=== PATIENT | male | born 1950 | race Caucasian/White ===

== ENCOUNTER → 2016-10-06 | Outpatient (CLI) | payer OTHER ==
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
--- NOTE | 2016-10-06 16:18 | MR ---
EXAMINATION TYPE: MR knee LT wo con DATE OF EXAM: 10/06/2016 COMPARISON: NONE HISTORY: Chaim knee pain TECHNIQUE: Multiplanar, multisequence imaging of the knee is performed without IV contrast. FINDINGS: MEDIAL MENISCUS: Anterior and posterior horns are intact without tear. LATERAL MENISCUS: Posterior horn has increased signal internally compatible some internal derangement or degenerative change. CRUCIATE LIGAMENTS: The anterior and posterior cruciate ligaments are intact and unremarkable. COLLATERAL LIGAMENTS: The medial collateral ligament and lateral collateral ligament complex are inta ct and unremarkable. EXTENSOR MECHANISM: Visualized quadriceps and patellar tendons are intact. EFFUSION: No significant suprapatellar joint effusion. Minimal joint fluid is present. POPLITEAL CYST: No popliteal/guerrero cyst. TRICOMPARTMENT SPACES: There is narrowing of the medial and lateral compartment joint spaces. There i s thinning of the articular cartilage. Findings are compatible with osteoarthritic degenerative levin e. Patellofemoral space appears preserved. BONE MARROW SIGNAL: Some minimal increased signals along the anterior medial aspect lateral tibial pl ateau. A small contusion may be present. OTHER: No additional significant abnormality is appreciated. IMPRESSION: 1. Internal derangement or degenerative change posterior horn lateral meniscus. 2. Osteoarthritic degenerative change
== END | disposition home or self-care (01) ==
LOC: RADMRIMAIN 12:37
PROVIDERS: ATTEND Nurse Practitioner
DX: S83.241A Other tear of medial meniscus, current injury, right knee, initial encounter (principal); M17.12 Unilateral primary osteoarthritis, left knee

== ENCOUNTER → 2017-11-18 | Outpatient (CLI) | payer MEDICARE ==
--- NOTE | 2017-11-19 00:55 | MR ---
EXAMINATION TYPE: MR tspine/lspine wo con DATE OF EXAM: 11/18/2017 COMPARISON: None HISTORY: 67-year-old male with thoracic and lumbar spine pain, lumbago. TECHNIQUE: Multiplanar, multisequence imaging of the thoracic and lumbar spine is performed without I V contrast. FINDINGS: Thoracic spine: Vertebral body heights are preserved. Small superior endplate Schmorl's nodes at T5, T6, and T7 level s. Alignment is maintained. Mild heterogeneity of marrow signal without suspicious bone marrow replacement. A few scattered fatty matrix hemangiomas are demonstrated. There is variable mild intervertebral disc desiccation. No large focal disc herniation or significant spinal canal stenosis. Normal course, caliber, and signal intensity of the thoracic spinal cord and normal conus medullaris. No significant neural foraminal stenosis on either side. Lumbar spine: Vertebral body heights are preserved and alignment is maintained. Variable mild intervertebral disc desiccation. There is moderate disc space narrowing at L3-L4 with a ssociated Modic type II fatty endplate change and bulging disc with small left paracentral annular fi ssure. Conus medullaris is normal. Mild heterogeneity of marrow signal without suspicious bone marrow replacement. Facet arthropathy lower lumbar spine. From T12 through L3 levels, no significant spinal canal or foraminal stenosis. At L3-L4, diffuse disc bulge with left paracentral annular fissure and facet arthropathy. Changes res ult in minimal inferior left and mild right neural foraminal stenosis. No spinal canal stenosis. At L4-L5, there is facet degenerative change without significant canal or foraminal stenosis. At L5-S1, there is facet degenerative change without canal or foraminal stenosis. Suggestion of mild circumferential bladder wall thickening and prominent urinary bladder distention. No prevertebral or paravertebral soft tissue abnormality seen. IMPRESSION: THORACIC SPINE: 1. Mild degenerative disc disease without focal disc herniation or significant spinal canal or neurof oraminal stenosis. LUMBAR SPINE: 1. Mild multilevel degenerative disc disease, more moderate at L3-L4 with associated Modic type II en dplate change and a small left paracentral annular fissure. 2. Changes minimally narrow the left L3-L4 neuroforamen and mildly narrow the right. 3. No large focal disc herniation or significant canal stenosis. 4. Prominent urinary bladder distention with mild circumferential bladder wall thickening. Possible c hronic bladder wall hypertrophy such as from BPH/bladder outlet obstruction. Clinically correlate.
== END | disposition home or self-care (01) ==
LOC: RADMRIMAIN 12:01
PROVIDERS: ATTEND Nurse Practitioner
DX: M51.34 Other intervertebral disc degeneration, thoracic region (principal); M51.36 Other intervertebral disc degeneration, lumbar region; M99.73 Connective tissue and disc stenosis of intervertebral foramina of lumbar region
CPT/HCPCS: 72146; 72148

== ENCOUNTER 2018-04-21 10:33 | Day surgery (SDC) | payer MEDICARE ==
[2018-04-19 14:26] VITALS: BMI 31.3
[~2018-04-21 10:33] MED LIST: LACTATED RINGERS 1,000 ML IV SCH; LIDOCAINE 1% 20 ML VIAL (10MG/ML) FOR IV START INTRADERMA PRN; MIDAZOLAM (PF) 2 MG/2 ML VIAL IV PRN
[2018-04-21 11:02] VITALS: TEMP 97.3
[2018-04-21] MEDS ORDERED: LIDOCAINE 1% INJ 10MG/ML (20 ML MDV) ONE (11:57)
[2018-04-21] MEDS ORDERED: PROPOFOL 10 MG/ML 20 ML VIAL IV ONE (11:57)
--- NOTE | 2018-04-21 12:30 | P.PCN ---
Date of Procedure: 04/21/18 Procedure(s) Performed: Procedure: Esophagogastroduodenoscopy and biopsy. Preoperative diagnosis: Chronic reflux requiring medical therapy. Postoperative diagnosis: 1. Hiatal hernia with no obvious esophagitis or complicated reflux disease. 2. Multiple biopsies obtained from the duodenum, antrum and esophagus. Preparation sedation: Was provided by anesthesia. Brief clinical history: The patient is 67-year-old male with history of chronic reflux, was evaluated in our office earlier this month because of daily heartburn and acid regurgitation and intermittent nausea despite taking Zantac 300 twice a day. He has taken omeprazole and Nexium without help in the past. His last EGD may have been around 2013. This evaluation is to assess for esophagitis, complicated reflux disease or other pathology. Procedure: With the patient on his left lateral decubitus position and after informed consent and adequate sedation, I passed the Olympus-GIF H190 video upper endoscope through the cricopharyngeus down the esophagus. GE junction was around 36 cm from the incisors and there was a sliding hiatal hernia 2 or 3 cm in size. The esophagus did not show any obvious esophagitis or complicated reflux disease. The endoscope was then passed into the stomach which was insufflated with air and inspected in detail including the retroflex view in the cardia. There was minimal mottling and erythema in the antrum but no ulcers or erosions. Pyloric channel, duodenal bulb, post bulbar area and descending duodenum appeared within normal limits. Because of his symptoms, I obtained biopsies from the duodenum, antrum and esophagus then the endoscope was withdrawn. The patient tolerated the procedure well. Plan: The patient was reassured. Will await biopsy results and make further plans based on his course and biopsy results. We will keep you updated on his progress.
[2018-04-21 12:39] VITALS: BP 106/66; PULSE 66; RESP 16
== END 2018-04-21 13:00 | disposition home or self-care (01) ==
LOC: ORWHC2ENDO 10:33
DX: K29.50 Unspecified chronic gastritis without bleeding (principal); K21.9 Gastro-esophageal reflux disease without esophagitis; K44.9 Diaphragmatic hernia without obstruction or gangrene; I10 Essential (primary) hypertension; Z87.891 Personal history of nicotine dependence; Z79.899 Other long term (current) drug therapy; Z98.890 Other specified postprocedural states
CPT/HCPCS: 88305; 43239; J2001; J2704

== ENCOUNTER → 2018-05-05 | Outpatient (CLI) | payer MEDICARE ==
[2018-05-05 12:38] LABS: Basophils # (A) 0.1 k/uL (0-0.2); Basophils % (A) 1 %; Eosinophils # (A) 0.5 k/uL (0-0.7); Eosinophils % (A) 9 %; HCT 46.6 % (39.0-53.0); HGB 15.4 gm/dL (13.0-17.5); Lymphocytes # (A) 1.7 k/uL (1.0-4.8); Lymphocytes % (A) 29 %; MCH 30.3 pg (25.0-35.0); MCHC 33.2 g/dL (31.0-37.0); MCV 91.3 fL (80.0-100.0); Mean Platelet Volume 7.6; Monocytes # (A) 0.4 k/uL (0-1.0); Monocytes % (A) 6 %; Neutrophils % (A) 52 %; Platelet Count 254 k/uL (150-450); RDW 12.9 % (11.5-15.5); WBC 5.9 k/uL (3.8-10.6)
== END ==
LOC: LABPAT 11:39
PROVIDERS: ATTEND Surgery
DX: Z01.818 Encounter for other preprocedural examination (principal); Z01.812 Encounter for preprocedural laboratory examination; K21.9 Gastro-esophageal reflux disease without esophagitis
CPT/HCPCS: 85025

== ENCOUNTER 2018-05-12 07:31 | Day surgery (SDC) | payer MEDICARE ==
[~2018-05-12 07:31] MED LIST changes: +DEXAMETHASONE SOD PHOSPHATE 10 MG/ML 1 ML VIAL IV ONE; +HEPARIN SODIUM,PORCINE 5,000 UNIT/ML 1 ML VIAL SQ ONE; -LACTATED RINGERS 1,000 ML IV SCH; +ceFAZolin IN SWFI 2 GM/20 ML SYRINGE IVP ONE
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
[2018-05-12] MEDS: LACTATED RINGERS 1,000 ML IV SCH (08:46)
[2018-05-12] MEDS ORDERED: ONDANSETRON 4 MG/2 ML VIAL IVP ONE (08:50)
[2018-05-12] MEDS ORDERED: ePHEDrine SULFATE/0.9% NACL/PF 50 MG/5 ML SYRINGE IV ONE (09:07)
[2018-05-12] MEDS ORDERED: NEOSTIGMINE 1 MG/ML 10 ML VIAL ONE (09:07)
[2018-05-12] MEDS ORDERED: GLYCOPYRROLATE 0.2 MG/ML 2 ML VIAL ONE (09:07)
[2018-05-12] MEDS ORDERED: fentaNYL (PF) 50 MCG/ML 2 ML AMP ONE (09:07)
[2018-05-12] MEDS ORDERED: LIDOCAINE 1% INJ 10MG/ML (20 ML MDV) ONE (09:07)
[2018-05-12] MEDS ORDERED: SUCCINYLCHOLINE CHLORIDE 100 MG/5 ML SYR IV ONE (09:07)
[2018-05-12] MEDS ORDERED: HYDROmorphone (PF) 1 MG/ML ONE (09:07)
[2018-05-12] MEDS ORDERED: ROCURONIUM BROMIDE 10 MG/ML 10 ML VIAL IV ONE (09:07)
[2018-05-12] MEDS ORDERED: KETOROLAC 30 MG/ML 1 ML VIAL ONE (09:07)
[2018-05-12] MEDS ORDERED: PROPOFOL 10 MG/ML 20 ML VIAL IV ONE (09:07)
[2018-05-12] MEDS ORDERED: MIDAZOLAM 2 MG/2 ML VIAL ONE (09:07)
[2018-05-12] MEDS ORDERED: BUPIVACAIN-EPI 0.25%-1:200,000 30 ML VIAL SQ ONE (09:31)
[2018-05-12] MEDS ORDERED: LACTATED RINGERS 1,000 ML IV ONE (09:45)
[2018-05-12] MEDS ORDERED: ONDANSETRON 4 MG/2 ML VIAL IVP PRN (10:28)
--- NOTE | 2018-05-12 10:28 | P.OP ---
Date of Procedure: 05/12/18 Preoperative Diagnosis: GERD Postoperative Diagnosis: GERD Procedure(s) Performed: Laparoscopic Miracle fundoplication Anesthesia: RUDOLPH Surgeon: Cal Rowan Estimated Blood Loss (ml): 30 Pathology: none sent Condition: stable Disposition: PACU Description of Procedure: HThe patient was placed on the operating table in the supine position. The patient received general anesthesia. And was placed in dorsal lithotomy position. The patient was prepped and draped in the usual sterile fashion. The skin incision sites were anesthetized with 1% local Xylocaine. The skin was incised in the left periumbilical area and then using a blade less 5 mm trocar under direct visualization panel cavity was entered. After adequate insufflation the laparoscope was then placed into the peritoneal cavity. Next a 5 mm trochars placed in the right epigastric position. Another 5 millimeter trocar the right lateral position. Another 5 millimeter trocar in the left lateral position a 5 mm trocar is placed in the left epigastric position. And then the initial 5 mm trocar was exchanged for a 10 mm trocar. The left lateral lobe liver was retracted. The hernia was seen. The crural defect was then dissected using the Harmonic scissors device. A 360 crural dissection was performed the esophagus stomach was reduced back into the peritoneal Cavity. The crural defect was then closed using 2-0 Ethibond suture. Next the fundus of the stomach was mobilized using the [place] scissors device. and then a 58- [place] bougie dilator was placed oropharynx passed into the esophagus and stomach the fundal plication wrap was then performed by grasping the fundus posteriorly and bringing it around the esophagus and stomach fundoplication was then performed using 2-0 Ethibond suture. A 180 fundal plication was performed. Care was taken that the fundal location rested over top of the intra-abdominal esophagus. There was no injury seen to the stomach or esophagus. The dilator was then withdrawn. The abdomen was irrigated there is no bleeding seen. The trochars were then withdrawn and then skin incision sites were closed using 3-0 Monocryl suture Steri-Strips are applied. Patient thought procedure well and sent to recovery room in stable condition.
[2018-05-12] MEDS: fentaNYL (PF) 50 MCG/ML 2 ML AMP IV PRN ×2 (11:07→11:14)
[2018-05-12] MEDS: METOCLOPRAMIDE 5 MG/ML 2 ML VIAL IVP SCH ×3 (12:44→23:39)
[2018-05-12] MEDS: HYDROmorphone 1 MG/ML 1 ML SYRINGE IVP PRN ×2 (12:45→20:19)
[2018-05-12 12:49] LABS: Basophils % (A) 0 %; Eosinophils # (A) 0.1 k/uL (0-0.7); Eosinophils % (A) 2 %; HCT 40.8 % (39.0-53.0); HGB 13.5 gm/dL (13.0-17.5); Lymphocytes # (A) 0.4 k/uL (1.0-4.8); Lymphocytes % (A) 4 %; MCH 30.5 pg (25.0-35.0); MCHC 33.2 g/dL (31.0-37.0); Mean Platelet Volume 7.6; Monocytes # (A) 0.1 k/uL (0-1.0); Monocytes % (A) 1 %; Neutrophils # (A) 8.7 k/uL (1.3-7.7); Neutrophils % (A) 92 %; Platelet Count 192 k/uL (150-450); RBC 4.43 m/uL (4.30-5.90); RDW 12.7 % (11.5-15.5); WBC 9.4 k/uL (3.8-10.6)
[2018-05-12] MEDS ORDERED: guaiFENesin SYRUP 100MG/5ML 200 MG/10 ML CUP PO PRN (13:04)
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
[2018-05-12] MEDS: D5-0.45% NACL WITH KCL 20MEQ/L 1,000 ML IV SCH ×2 (13:30→20:22)
[2018-05-12] MEDS: BENZOCAINE/MENTHOL LOZENG 1 EACH LOZENGE MUCOUS MEM PRN ×2 (13:34→17:05)
[2018-05-12 14:14] VITALS: BMI 31.3
--- NOTE | 2018-05-12 15:57 | FL ---
EXAMINATION TYPE: FL esophagus cervic/pharynx DATE OF EXAM: 05/12/2018 CLINICAL HISTORY: Status post Miracle fundoplication. TECHNIQUE: Esophagram is performed utilizing Omnipaque 350. A total of 1 minute and 5 seconds of fluo roscopic time was utilized during procedure. 15 fluoroscopic images were saved FINDINGS: The patient swallowed contrast without difficulty or delay. Esophageal peristalsis and mo tility are within normal limits. There is mild delay of flow of contrast along the diaphragmatic hiat us into the stomach, there is no evidence of contrast extravasation to suggest leak. No persistent hi atal hernia is seen. Patient remains asymptomatic. IMPRESSION: No evidence of leak status post Armand fundoplication surgery earlier today. Mild delay a t the gastroesophageal junction likely relates to postoperative edema.
[2018-05-12] MEDS: ceFAZolin IN SWFI 2 GM/20 ML SYRINGE IVP SCH ×2 (16:42→23:39)
[2018-05-12] MEDS: FAMOTIDINE 20 MG/2 ML VIAL IV SCH (20:19)
[2018-05-13] MEDS: METOCLOPRAMIDE 5 MG/ML 2 ML VIAL IVP SCH ×2 (05:08→11:30)
[2018-05-13] MEDS: D5-0.45% NACL WITH KCL 20MEQ/L 1,000 ML IV SCH ×2 (05:08→11:30)
[2018-05-13] MEDS: HYDROmorphone 1 MG/ML 1 ML SYRINGE IVP PRN (05:15)
[2018-05-13 08:06] VITALS: BP 110/66; PULSE 57; RESP 14; TEMP 98
[2018-05-13] MEDS: ENOXAPARIN 40 MG/0.4 ML SYRINGE SQ SCH ×2 (08:52→08:57)
[2018-05-13] MEDS: FAMOTIDINE 20 MG/2 ML VIAL IV SCH (08:52)
[2018-05-13] MEDS: LACTATED RINGERS 1,000 ML IV SCH (08:53)
[2018-05-13] MEDS ORDERED: METOPROLOL SUCCINATE (ER) 100 MG TAB.ER.24H PO SCH (09:00)
[2018-05-13] MEDS ORDERED: HYDROcodone/APAP 7.5-325MG 1 EACH TAB PO PRN (09:04)
--- NOTE | 2018-05-13 10:17 | P.DS ---
Providers Expected date of discharge: 05/13/18 Attending physician: Cal Rowan Consults: 05/12/18 10:28 Consult Physician Routine Consulting Provider: Ludy Pak Consult Reason/Comments: Medical management Do you want consulting provider notified?: Yes Primary care physician: Agustín [facility] Course: 67-year-old male with a history of GERD who underwent elective Miracle fundoplication on 05/12/[address] Rowan. Patient is doing well postoperatively without any immediate complications. Patient's pain is tolerable. He has been up ambulating. He is tolerating clear liquid diet. He is stable for discharge home today. He is to follow up on an outpatient basis. Please see EMR for further hospital course details. DISCHARGE DIAGNOSIS: 1. GERD status post Miracle fundoplication Nurse practitioner note has been reviewed by physician. Signing provider agrees with the documented findings, assessment, and plan of care. Plan - Discharge Summary Discharge Rx Participant: Yes New Discharge Prescriptions: New HYDROcodone/APAP 7.5-325MG [[place] 7.5-325] 1 tab PO Q4H PRN 3 Days #18 tab PRN Reason: Pain No Action Omeprazole [PriLOSEC] 40 mg PO HS Metoprolol Succinate (ER) [Toprol XL] 100 mg PO QAM Discharge Medication List Metoprolol Succinate (ER) [Toprol XL] 100 mg PO QAM 05/10/18 [History] Omeprazole [PriLOSEC] 40 mg PO HS 05/10/18 [History] HYDROcodone/APAP 7.5-325MG [[place] 7.5-325] 1 tab PO Q4H PRN 3 Days #18 tab 05/13/18 [Rx]
== END 2018-05-13 12:40 | disposition home or self-care (01) ==
LOC: OR 07:31 → 4SSUR 10:41 → OR 05-13 12:40
PROVIDERS: ATTEND Surgery
DX: K21.0 Gastro-esophageal reflux disease with esophagitis (principal); I10 Essential (primary) hypertension; G89.29 Other chronic pain; Z87.891 Personal history of nicotine dependence; Z79.899 Other long term (current) drug therapy; Z85.46 Personal history of malignant neoplasm of prostate
CPT/HCPCS: 85025; 74210; 43280; J2250; J1644; J1100; J2710; J2765 ×2; J2405; J2001; J3010; J1885; J1170 ×2; J0330; J2704; J0690; Q9967; 86850; 86900; 86901